=== PATIENT | male | born 1990 | race Two or more races ===

== ENCOUNTER 2025-05-13 18:01 | Emergency (ER) | payer OTHER ==
[~2025-05-13] VITALS: Ht 190.5 cm; Wt 120.0 kg
[2025-05-13 20:07] VITALS: BP 118/73; PULSE 58; RESP 18; TEMP 98.6; O2SAT 99
== END 2025-05-14 01:00 ==
LOC: EMS 18:01
DX: S92.512A Displaced fracture of proximal phalanx of left lesser toe(s), initial encounter for closed fracture (principal); S09.90XA Unspecified injury of head, initial encounter; W19.XXXA Unspecified fall, initial encounter; Y93.89 Activity, other specified; Y92.89 Other specified places as the place of occurrence of the external cause; Y99.8 Other external cause status
CPT/HCPCS: 70450; 70486; 72125; 99284